=== PATIENT | male | born 1945 | race Caucasian/White ===

== ENCOUNTER → 2017-05-25 | Outpatient (CLI) | payer MEDICARE ==
[~2017-05-25] MED LIST: CITA20TA4 PO; LORA0.5T PO; LORT7.5T3 PO; MEVA40TA6 PO; TAMS0.4C67 PO
--- NOTE | 2017-05-25 11:14 | RADRPT ---
EXAM DATE/TIME: 05/25/2017 09:45 [place] COMPARISON: No previous studies available for comparison. INDICATIONS : Dysphagia, feel like something is stuck in his throat. FLUORO TIME: 2.4 minutes IMAGE COUNT: 0 CONTRAST: Dose as prescribed by speech pathologist. MEDICAL HISTORY : None. SURGICAL HISTORY : None. ENCOUNTER: Initial ACUITY: 3 weeks PAIN SCORE: 0/10 LOCATION: Bilateral neck FINDINGS: A modified barium swallow was performed with speech pathology. Patient was given a variety of liquids to swallow. Single episode of aspiration occurred with swallowing with chin tuck. However, the remaining swallows demonstrated no aspiration. For a full detailed report, see report by the speech pathologist. CONCLUSION: Please see speech pathology report for full details. Jasmeet Zuñiga MD on May 25, 2017 at 11:11 Board Certified Radiologist. This report was verified electronically.
== END ==
LOC: HRAD 09:33
PROVIDERS: ATTEND Family Medicine
DX: R13.10 Dysphagia, unspecified (principal)
CPT/HCPCS: 74230; 92611; G8996; G8997; G8998